=== PATIENT | male | born 1990 | race Caucasian/White ===

== ENCOUNTER 2021-02-17 23:44 | Emergency (ER) | payer OTHER ==
[~2021-02-17] VITALS: Ht 177.8 cm; Wt 79.0 kg
[2021-02-18 01:00] VITALS: BP 116/69
== END 2021-02-18 02:28 | disposition home or self-care (01) ==
LOC: ER 23:44
DX: R60.0 Localized edema (principal); F12.10 Cannabis abuse, uncomplicated; Z92.241 Personal history of systemic steroid therapy
CPT/HCPCS: 93970; 99284